=== PATIENT | female | born 1990 | race Caucasian/White ===

== ENCOUNTER 2018-03-30 16:39 | Emergency (ER) | payer OTHER ==
[2018-03-30] MEDS ORDERED: Famotidine 20 MG TAB ONE (17:50)
[2018-03-30] MEDS ORDERED: methylPREDNISolone Sod Succ/PF 125 MG/2 ML VIAL ONE (17:50)
[2018-03-30] MEDS ORDERED: Sterile Water 10 ML ONE (17:51)
== END 2018-03-30 18:15 | disposition home or self-care (01) ==
LOC: MADERS 16:39
DX: T78.40XA Allergy, unspecified, initial encounter (principal); E66.9 Obesity, unspecified; Z87.891 Personal history of nicotine dependence
CPT/HCPCS: 96374; A4216; J2930

== ENCOUNTER 2018-04-14 08:56 | Emergency (ER) | payer OTHER ==
[2018-04-14] MEDS ORDERED: predniSONE 20 MG TAB ONE (09:21)
[2018-04-14] MEDS ORDERED: Famotidine 20 MG TAB ONE (09:21)
== END 2018-04-14 09:23 | disposition home or self-care (01) ==
LOC: MADERS 08:56
DX: T78.40XA Allergy, unspecified, initial encounter (principal); E66.9 Obesity, unspecified; Z87.891 Personal history of nicotine dependence
CPT/HCPCS: 99282; J7506

== ENCOUNTER 2018-06-08 18:02 | Emergency (ER) | payer OTHER | END 2018-06-08 19:29 | disposition home or self-care (01) | LOC: MADERS 18:02 | DX: B86 Scabies (principal); E66.9 Obesity, unspecified; Z87.891 Personal history of nicotine dependence | CPT/HCPCS: 99282 ==

== ENCOUNTER 2020-10-22 17:57 | Emergency (ER) | payer SELFPAY ==
[2020-10-23 16:30] LABS: SARS-CoV-2 MS2 Positive; SARS-CoV-2 N Gene Negative; SARS-CoV-2 S Gene Negative; SARS-CoV-2 by NAA Not Detected (NotDetected); SARS-CoV-2 orf1ab Negative
== END 2020-10-22 20:00 | disposition home or self-care (01) ==
LOC: MADERS 17:57
DX: J20.9 Acute bronchitis, unspecified (principal); Z20.828 Contact with and (suspected) exposure to other viral communicable diseases; F17.210 Nicotine dependence, cigarettes, uncomplicated; E66.9 Obesity, unspecified
CPT/HCPCS: 87635; 99283; U0003

== ENCOUNTER 2021-01-29 10:45 | Emergency (ER) | payer SELFPAY ==
[2021-01-29 12:18] LABS: Bilirubin Negative (Negative); Blood, Urine Small (Negative); Clarity Clear (Clear); Glucose, Urine (Dipstick) Negative (Negative); Ketone, Urine Negative (Negative); Leukocyte Negative (Negative); Nitrite Negative (Negative); Protein, Urine (Dipstick) Negative (Neg-Trace); Urobilinogen 0.2 mg/dL (Less than 2)
[2021-01-29 12:26] LABS: Bacteria/HPF Rare-Few HPF (None Seen); RBC/HPF 0-3 HPF (0-3); Squamous Epithelial 0-3 HPF (0-3); WBC/HPF 0-3 HPF (0-3)
[2021-01-29 23:47] LABS: SARS-CoV-2 PCR by NAA Not Detected (NotDetected)
== END 2021-01-29 12:40 | disposition home or self-care (01) ==
LOC: MADERS 10:45
DX: J06.9 Acute upper respiratory infection, unspecified (principal); A08.4 Viral intestinal infection, unspecified; Z20.822 Contact with and (suspected) exposure to COVID-19; F17.210 Nicotine dependence, cigarettes, uncomplicated
CPT/HCPCS: 81003; 81015; 87081; 87430; 87635; 99284; U0003; U0005

== ENCOUNTER 2021-06-27 14:01 | Emergency (ER) | payer SELFPAY ==
[2021-06-27] MEDS ORDERED: Ondansetron ODT 4 MG TAB ONE (14:30)
[2021-06-27 14:48] LABS: Bilirubin Negative (Negative); Blood, Urine Moderate (Negative); Clarity Slightly Cloudy (Clear); Glucose, Urine (Dipstick) Negative (Negative); Ketone, Urine 40 mg/dL (Negative); Leukocyte Moderate (Negative); Nitrite Positive (Negative); Pregnancy Test - Urine (BHCG) Negative (Negative); Pregu Control Background? CLEAR/WHITE (CLR/WHITE); Pregu Control Bar Appear? YES (CONTROL BAR); Protein, Urine (Dipstick) 30 mg/dL (Neg-Trace); Specific Gravity 1.025 (1.002-1.036); Specific Gravity, Urine 1.025 (1.005-1.030); Urobilinogen 0.2 mg/dL (Less than 2)
[2021-06-27 14:51] LABS: Bacteria/HPF 2+ HPF (None Seen); RBC/HPF Greater than 50 HPF (0-3); Squamous Epithelial 0-3 HPF (0-3); WBC/HPF Greater Than 50 HPF (0-3)
[2021-06-27] MEDS ORDERED: Sulfameth/Trimethoprim DS 800-160mg TAB ONE (15:02)
== END 2021-06-27 15:05 | disposition home or self-care (01) ==
LOC: MADERS 14:01
DX: N39.0 Urinary tract infection, site not specified (principal); F17.210 Nicotine dependence, cigarettes, uncomplicated; E66.9 Obesity, unspecified
CPT/HCPCS: 81003; 81015; 81025; 87077; 87086; 87186; 99283; Q0162

== ENCOUNTER 2021-07-16 20:00 | Emergency (ER) | payer SELFPAY ==
[2021-07-17 16:41] LABS: SARS-CoV-2 PCR by NAA Not Detected (NotDetected)
== END 2021-07-16 20:27 | disposition home or self-care (01) ==
LOC: MADERS 20:00
DX: R11.2 Nausea with vomiting, unspecified (principal); R19.7 Diarrhea, unspecified; R50.9 Fever, unspecified; R53.81 Other malaise; R53.1 Weakness; R10.9 Unspecified abdominal pain; M25.50 Pain in unspecified joint; M79.10 Myalgia, unspecified site; Z20.822 Contact with and (suspected) exposure to COVID-19; E66.9 Obesity, unspecified; F17.210 Nicotine dependence, cigarettes, uncomplicated
CPT/HCPCS: 99283; U0003; U0005

== ENCOUNTER 2022-05-03 07:52 | Emergency (ER) | payer SELFPAY | END 2022-05-03 08:35 | disposition home or self-care (01) | LOC: MADERS 07:52 | DX: J02.0 Streptococcal pharyngitis (principal); F17.210 Nicotine dependence, cigarettes, uncomplicated | CPT/HCPCS: 99282 ==

== ENCOUNTER 2022-09-09 10:18 | Emergency (ER) | payer OTHER, SELFPAY ==
[2022-09-09] MEDS ORDERED: Boostrix 0.5 ML (Tdap) VIAL (>/=7 yrs of age) ONE (11:10)
== END 2022-09-09 11:27 | disposition home or self-care (01) ==
LOC: MADERS 10:18
DX: S62.637A Displaced fracture of distal phalanx of left little finger, initial encounter for closed fracture (principal); S00.83XA Contusion of other part of head, initial encounter; S00.511A Abrasion of lip, initial encounter; F17.210 Nicotine dependence, cigarettes, uncomplicated; V87.8XXA Person injured in other specified noncollision transport accidents involving motor vehicle (traffic), initial encounter; Y93.39 Activity, other involving climbing, rappelling and jumping off; Z23 Encounter for immunization
CPT/HCPCS: 26720; 26750; 90471; 90715